=== PATIENT | male | born 1960 | race Caucasian/White ===

== ENCOUNTER 2020-04-03 17:38 | Inpatient (IN) | payer OTHER ==
[~2020-04-03] VITALS: Ht 185.4 cm; Wt 78.5 kg
[2020-04-03] MEDS ORDERED: VANCOMYCIN 1 GM in IV D5W 250 ML IV ONE (18:30)
--- NOTE | 2020-04-03 18:40 | NUR ---
Line started on L ac G18, blood drawn from line and sent to lab
[2020-04-03 18:46] LABS: BASOPHILS % (AUTO) 0.2 % (0.0-2.0); HEMATOCRIT 45 % (39-51); LYMPHOCYTES # (AUTO) 0.4 /CMM (0.8-4.8); LYMPHOCYTES % (AUTO) 2.4 % (20.0-44.0); MEAN CORPUSCULAR HGB CONC 34 g/dl (31.0-36.0); MEAN CORPUSCULAR VOLUME 86 fL (80-96); MONOCYTES # (AUTO) 1.2 /CMM (0.1-1.30); MONOCYTES % (AUTO) 6.9 % (2.0-12.0); NEUTROPHILS # (AUTO) 16.1 /CMM (1.8-8.9); NEUTROPHILS % (AUTO) 90.5 % (43.0-81.0); PLATELET COUNT (AUTO) 220 /CMM (150-450); RED BLOOD CELL COUNT(AUTO) 5.23 MIL/uL (4.5-6.0); WHITE BLOOD COUNT (AUTO) 17.8 K/uL (4.3-11.0)
[2020-04-03] MEDS ORDERED: IOHEXOL-300 100 ML VIAL IV ONE (18:51)
[2020-04-03] MEDS ORDERED: IV NS 0.9% 0 ML IV ONE (18:51)
[2020-04-03] MEDS ORDERED: VANCOMYCIN 1 GM VIAL ONE (18:53)
[2020-04-03 18:54] LABS: CALCIUM, SERUM 8.2 mg/dL (8.5-10.1); CREATININE 1.6 mg/dL (0.6-1.3)
[2020-04-03 19:00] LABS: ALBUMIN 2.5 g/dL (3.4-5.0); BILIRUBIN,DIRECT 0.3 mg/dL (0.0-0.2); BILIRUBIN,TOTAL 0.7 mg/dL (0.2-1.0); TOTAL PROTEIN, SERUM 7.1 g/dL (6.4-8.2)
[2020-04-03] MEDS ORDERED: IV NS 0.9% 1,000 ML BAG IV ONE (19:00)
[2020-04-03] MEDS ORDERED: PIPERACILLIN /TAZOBACTAM 3.375 G in IV D5W 50 ML IV ONE (19:30)
[2020-04-03] MEDS ORDERED: ACETAMINOPHEN 325 MG TABLET PO ONE (19:30)
[2020-04-03] MEDS ORDERED: PIPERACILLIN /TAZOBACTAM 3.375 G VIAL IV ONE (19:46)
[2020-04-03] MEDS ORDERED: ACETAMINOPHEN ES 500 MG TABLET ONE (19:47)
--- NOTE | 2020-04-03 20:07 | NUR ---
REC'D NEG COVID RESULTS
--- NOTE | 2020-04-03 20:44 | NUR ---
KOREY STILL SPEAKING WITH YG BOLES NP REGARDING ADMISSION
--- NOTE | 2020-04-03 21:22 | NUR ---
PT PULLED OUT HIS IV LINE BY MISTAKE. A NEW IV LINE STARTED ON LFA W/ GOOD BLOOD RETURN . WILL CONT TO MONITOR,
[2020-04-04] MEDS ORDERED: MAGNESIUM HYDROXIDE 30 ML UDC PO PRN (00:30)
[2020-04-04] MEDS ORDERED: MAG HYDROX/AL HYDROX/SIMETH 30 ML UDC PO PRN (00:30)
[2020-04-04] MEDS ORDERED: Z GUARD REMEDY 2 OZ OINT TP PRN (00:30)
[2020-04-04] MEDS ORDERED: ZOLPIDEM TARTRATE 5 MG TABLET PO PRN (00:30)
[2020-04-04] MEDS ORDERED: ONDANSETRON HCL/PF 4 MG/2 ML VIAL IVP PRN (00:30)
[2020-04-04] MEDS ORDERED: HYDROCODONE/APAP 5/325MG TABLET PO PRN (00:30)
[2020-04-04] MEDS ORDERED: ACETAMINOPHEN 325 MG TABLET PO PRN (00:30)
--- NOTE | 2020-04-04 00:58 | NUR ---
PT NOTED WITH LOW O2 SAT OF 88% ON R/A . PT WAS PLACED ON O2 AT 5 LPM VIA NC AND YG BOLES FLYING II INSTRUCTOR MADE AWARE WITH A NEW ORDER FOR CXR. WILL CONT TO MONITOR ,
[2020-04-04] MEDS ORDERED: DOSE PER PHARMACY MICAFUNGIN 1 EA XX PRN (01:00)
[2020-04-04] MEDS ORDERED: MICAFUNGIN SODIUM 100 MG in IV NS 0.9% 100 ML IV ONE (01:00)
[2020-04-04] MEDS: IV NS 0.9% 1,000 ML IV PRN ×2 (01:11→20:09)
[2020-04-04] MEDS ORDERED: HEPARIN SODIUM, PORCINE 5000 UNITS/1 ML VIAL ONE ×3 (01:15→21:22)
[2020-04-04] MEDS ORDERED: PIPERACILLIN /TAZOBACTAM 3.375 G VIAL IV ONE ×3 (01:15→12:09)
[2020-04-04] MEDS: HEPARIN SODIUM, PORCINE 5000 UNITS/1 ML VIAL SQ SCH ×3 (01:25→21:56)
[2020-04-04] MEDS: ZOSYN IVPB 3.375 G in IV D5W 50ml IV SCH ×4 (01:25→17:58)
[2020-04-04] MEDS ORDERED: MICAFUNGIN SODIUM 100 MG VIAL IV ONE (01:31)
[2020-04-04] MEDS ORDERED: TOBRAMYCIN OPHTH 5ML 5 ML BOTTLE ONE (01:33)
[2020-04-04] MEDS: TOBRAMYCIN OPHTH 5ML 5 ML BOTTLE EACHEYE SCH ×6 (01:51→21:25)
--- NOTE | 2020-04-04 03:39 | NUR ---
Patient is resting comfortably in bed with eyes closed. Easily aroused. VSS. on ongoing IVF hydration. opal well. will cont to monitor,
--- NOTE | 2020-04-04 07:36 | NUR ---
PATIENT IN BED ASLEEP, EASILY AROUSABLE BY VOICE. HOOKED TO MONITOR. VSS. WILL CONTINUE TO MONITOR ACCORDINGLY
--- NOTE | 2020-04-04 08:53 | NUR ---
JOSÉ MANUEL LUBIN FROM WOUND CARE RECOMMENDED WOUND CULTURE WITH GS. CARRIED OUT
--- NOTE | 2020-04-04 09:00 | NUR ---
WOUND CARE CONSULT: PT SEEN FOR SEVERE REDNESS, EDEMA AND SOME YELLOWISH DRAINAGE AROUND SIDES OF NOSE, PRESENT ON ADMISSION. NO OPEN WOUND NOTED. RN TO DISCUSS WITH MD TODAY. CULTURE RECOMMENDED AND DEFER TO PMD FOR POSSIBLE I.D. CONSULT. WILL SEE PRN.
--- NOTE | 2020-04-04 09:48 | NUR ---
WOUND CULTURE DONE AND SENT TO LAB
[2020-04-04] MEDS: VANCOMYCIN HCL 0.75 GM in IV D5W 250 ML IV SCH ×2 (11:35→23:18)
--- NOTE | 2020-04-04 11:56 | NUR ---
LUNCH TRAY PROVIDED, TOLERATING PO WELL.
[2020-04-04] MEDS: FLUCONAZOLE IN NS,PREMIX 400 MG in PREMIX 1 EA IV SCH ×2 (13:00)
[2020-04-04] MEDS ORDERED: diphenhydrAMINE HCL 50 MG CAPSULE PO PRN (16:00)
[2020-04-04] MEDS ORDERED: methylPREDNISolone SOD SUCC 40 MG/ML VIAL ONE ×2 (16:08→23:14)
[2020-04-04] MEDS ORDERED: FAMOTIDINE/PF INJ 20 MG/2 ML VIAL IV ONE (16:09)
[2020-04-04] MEDS: FAMOTIDINE/PF INJ 20 MG/2 ML VIAL IV SCH (16:14)
[2020-04-04] MEDS: methylPREDNISolone SOD SUCC 40 MG/ML VIAL IV SCH ×2 (16:14→23:18)
--- NOTE | 2020-04-04 17:51 | NUR ---
PATIENT SERVED LUNCH. TOLERATING PO WELL . ATE 90% OF FOOD. Addendum: 04/04/20 at 1850 by ANDREA PATIENT SERVED DINNER. TOLERATING PO WELL . ATE 90% OF FOOD.
[2020-04-04] MEDS ORDERED: HYDROCODONE/APAP 5/325MG TABLET ONE (18:12)
[2020-04-04] MEDS: HYDROCODONE/APAP 5/325MG TABLET PO PRN (18:14)
--- NOTE | 2020-04-04 18:44 | NUR ---
1300 CC TOTAL URINE COLLECTED FOR THE ENTIRE SHIFT
--- NOTE | 2020-04-04 19:21 | NUR ---
REPORT GIVEN TO WILLIAM FRANCOIS FOR KAYLA
--- NOTE | 2020-04-04 19:27 | NUR ---
REC'D PT IN BED , AWAKE AND ALERT. BREATHING EVENLY ON R/A. NO SOB. NAD. NO C/.O PAIN OR DISCOMFORT AT THIS TIME. BED LOW LOCKED POSITION. SR X 2. CALL LIGHT WITHIN REACH. WILL CONT TO MONITOR.
[2020-04-05] MEDS: ZOSYN IVPB 3.375 G in IV D5W 50ml IV SCH ×4 (00:59→17:06)
[2020-04-05] MEDS: TOBRAMYCIN OPHTH 5ML 5 ML BOTTLE EACHEYE SCH ×6 (01:00→21:12)
[2020-04-05 06:07] LABS: BASOPHILS # (AUTO) 0.1 /CMM (0.0-0.2); BASOPHILS % (AUTO) 0.6 % (0.0-2.0); HEMATOCRIT 37 % (39-51); HEMOGLOBIN 12.5 g/dL (13.5-17.5); LYMPHOCYTES # (AUTO) 0.5 /CMM (0.8-4.8); MEAN CORPUSCULAR HGB CONC 34 g/dl (31.0-36.0); MEAN CORPUSCULAR VOLUME 87 fL (80-96); MONOCYTES # (AUTO) 0.2 /CMM (0.1-1.30); MONOCYTES % (AUTO) 2.6 % (2.0-12.0); NEUTROPHILS # (AUTO) 8.7 /CMM (1.8-8.9); NEUTROPHILS % (AUTO) 91.8 % (43.0-81.0); PLATELET COUNT (AUTO) 235 /CMM (150-450); WHITE BLOOD COUNT (AUTO) 9.5 K/uL (4.3-11.0)
[2020-04-05 06:33] LABS: BILIRUBIN,TOTAL 0.2 mg/dL (0.2-1.0); CALCIUM, SERUM 8.1 mg/dL (8.5-10.1); CREATININE 1.2 mg/dL (0.6-1.3); MAGNESIUM 2.2 mg/dL (1.8-2.4); PHOSPHORUS 3.4 mg/dL (2.5-4.9); POTASSIUM 4.4 mmol/L (3.5-5.1); TOTAL PROTEIN, SERUM 6.2 g/dL (6.4-8.2)
[2020-04-05] MEDS: IV NS 0.9% 1,000 ML IV PRN ×2 (06:59→08:09)
[2020-04-05] MEDS ORDERED: FAMOTIDINE/PF INJ 20 MG/2 ML VIAL IV ONE ×2 (08:01→21:03)
[2020-04-05] MEDS ORDERED: HEPARIN SODIUM, PORCINE 5000 UNITS/1 ML VIAL ONE ×2 (08:02→21:03)
[2020-04-05] MEDS ORDERED: methylPREDNISolone SOD SUCC 40 MG/ML VIAL ONE ×3 (08:02→23:59)
[2020-04-05] MEDS: FAMOTIDINE/PF INJ 20 MG/2 ML VIAL IV SCH ×2 (08:09→21:05)
--- NOTE | 2020-04-05 08:11 | NUR ---
PT GIVEN MEDS PER MD ORDER
[2020-04-05] MEDS: methylPREDNISolone SOD SUCC 40 MG/ML VIAL IV SCH ×2 (08:13→16:08)
[2020-04-05] MEDS: HEPARIN SODIUM, PORCINE 5000 UNITS/1 ML VIAL SQ SCH ×2 (08:14→21:12)
[2020-04-05] MEDS ORDERED: HYDROCODONE/APAP 5/325MG TABLET ONE (08:40)
[2020-04-05] MEDS: HYDROCODONE/APAP 5/325MG TABLET PO PRN (08:42)
--- NOTE | 2020-04-05 08:46 | NUR ---
PATIENT A/OX4, BREATHING EVEN AND UNLABORED, ATE BREAKFAST AND TOLERATED WELL. PATIENT COMPLAINED OF FACIAL PAIN, NORCO GIVEN. NO DISTRESS NOTED.
[2020-04-05] MEDS: VANCOMYCIN HCL 0.75 GM in IV D5W 250 ML IV SCH (11:04)
[2020-04-05] MEDS: FLUCONAZOLE IN NS,PREMIX 400 MG in PREMIX 1 EA IV SCH ×2 (12:49)
--- NOTE | 2020-04-05 14:16 | NUR ---
PATIENT RESTING, NO DISTRESS NOTED.
--- NOTE | 2020-04-05 14:48 | NUR ---
MARJORIE COMMISSARY CLERK AT BEDSIDE FOR EVAL. NO DISTRESS NOTED.
[2020-04-05] MEDS ORDERED: HYDROCODONE/APAP 10/325MG TABLET PO PRN (15:00)
--- NOTE | 2020-04-05 16:57 | NUR ---
ZOSYN GIVEN PER MD ORDER
--- NOTE | 2020-04-05 17:50 | NUR ---
pt amb br washed up bed cleaned eatting dinner
[2020-04-05] MEDS: VANCOMYCIN 1 GM in IV D5W 250ml IV SCH (21:12)
[2020-04-05] MEDS ORDERED: HYDROCODONE/APAP 10/325MG TABLET ONE (23:29)
[2020-04-06] MEDS: ZOSYN IVPB 3.375 G in IV D5W 50ml IV SCH ×3 (00:10→12:22)
--- NOTE | 2020-04-06 00:34 | NUR ---
PT RESTING COMFORTABLY. VSS.
[2020-04-06] MEDS: TOBRAMYCIN OPHTH 5ML 5 ML BOTTLE EACHEYE SCH ×4 (01:03→13:29)
[2020-04-06] MEDS ORDERED: HYDROCODONE/APAP 5/325MG TABLET ONE (03:04)
--- NOTE | 2020-04-06 04:37 | NUR ---
PT REQUESTED WATER. WATER AND SNACKS PROVIDED TO PT.
[2020-04-06 05:27] LABS: CALCIUM, SERUM 8.6 mg/dL (8.5-10.1); POTASSIUM 4.4 mmol/L (3.5-5.1)
--- NOTE | 2020-04-06 07:12 | NUR ---
SPOKE TO THE MOTHER REGARDING KAYLA, CONSENT FROM [facility] WAS OBTAINED BEFORE.
--- NOTE | 2020-04-06 07:56 | NUR ---
REPORT GIVEN TO NAPOLEON FRANCOIS FOR KAYLA
[2020-04-06 08:06] LABS: PTH, INTACT 39 pg/mL (15-65)
--- NOTE | 2020-04-06 08:32 | NUR ---
PATIENT IN BED, EATING BREAKFAST. TOLERATING PO WELL. WILL CONTINUE TO MONITOR
[2020-04-06] MEDS ORDERED: methylPREDNISolone SOD SUCC 40 MG/ML VIAL ONE (08:58)
[2020-04-06] MEDS: NICOTINE PATCH (21MG) 21 MG PATCH.TD24 TD SCH ×2 (09:00→09:13)
[2020-04-06] MEDS: methylPREDNISolone SOD SUCC 40 MG/ML VIAL IV SCH ×2 (09:00)
[2020-04-06] MEDS ORDERED: FAMOTIDINE/PF INJ 20 MG/2 ML VIAL IV ONE (09:36)
[2020-04-06] MEDS ORDERED: HEPARIN SODIUM, PORCINE 5000 UNITS/1 ML VIAL ONE (09:36)
[2020-04-06] MEDS: VANCOMYCIN 1 GM in IV D5W 250ml IV SCH (09:48)
[2020-04-06] MEDS: HEPARIN SODIUM, PORCINE 5000 UNITS/1 ML VIAL SQ SCH (09:48)
[2020-04-06] MEDS: FAMOTIDINE/PF INJ 20 MG/2 ML VIAL IV SCH (09:49)
--- NOTE | 2020-04-06 11:42 | NUR ---
PATIENT IN BED AWAKE. HOOKED TO MONITOR, VSS.
[2020-04-06] MEDS: FLUCONAZOLE IN NS,PREMIX 400 MG in PREMIX 1 EA IV SCH ×4 (12:22→13:00)
--- NOTE | 2020-04-06 13:59 | NUR ---
SEEN BY MANAGER INSURANCE RICKY, PATIENT OK TO BE DISCHARGED. PRESCRIPTIONS FOR NORCO 10-325MG Q12 PRN MEDROL DOSE PACK 4MG AND CLINDAMYCIN 300MG PO Q6 X 7DAYS GIVEN.
--- NOTE | 2020-04-06 15:42 | NUR ---
IV removed. Catheter intact and site benign. Pressure and 4x4 applied to site. No bleeding noted. Patient discharged to home in stable condition. Written and verbal after care instructions given. Patient verbalizes understanding of instruction. Provided w prescription. facial area with scab, but the rest of the body has intact skin. Patient ambulatory and AAO x 4. All belongings given back to patient.
--- NOTE | 2020-04-06 15:53 | NUR ---
ADVANCE STATUS (DISCHARGE FINAL) - UNABLE TO DEPART IN [facility]
[2020-04-06 16:49] VITALS: BP 126/62
[2020-04-07 08:12] LABS: *SPE A/G RATIO 0.7 (0.7-1.7); *SPE ALBUMIN 2.2 g/dL (2.9-4.4); *SPE ALPHA-1-GLOBULIN 0.4 g/dL (0.0-0.4); *SPE ALPHA-2-GLOBULIN 0.9 g/dL (0.4-1.0); *SPE BETA GLOBULIN 0.9 g/dL (0.7-1.3); *SPE GLOBULIN, TOTAL 3.3 g/dL (2.2-3.9); *SPE M-SPIKE Not Observed g/dL (Not Observed); *SPEGAMMA GLOBULIN 1.1 g/dL (0.4-1.8)
== END 2020-04-06 15:47 | disposition home or self-care (01) | DRG 383 ==
LOC: ER 17:43 → TRANSITION 23:31
PROVIDERS: ADMIT Nurse Practitioner Acute Care; ATTEND Nurse Practitioner Acute Care
DX: L03.211 Cellulitis of face (principal); E87.1 Hypo-osmolality and hyponatremia; N17.0 Acute kidney failure with tubular necrosis; E44.0 Moderate protein-calorie malnutrition; E86.1 Hypovolemia; E87.2 Acidosis; F17.200 Nicotine dependence, unspecified, uncomplicated; Z20.828 Contact with and (suspected) exposure to other viral communicable diseases; D72.829 Elevated white blood cell count, unspecified; E88.09 Other disorders of plasma-protein metabolism, not elsewhere classified; Z68.22 Body mass index [BMI] 22.0-22.9, adult; R73.9 Hyperglycemia, unspecified
CPT/HCPCS: 36415; 70486-TC; 71045-TC; 80048-TC; 80053-TC; 80061-TC; 80076-TC; 80202-TC; 82550-TC; 83605-TC; 83735-TC; 83970; 84100-TC; 84155; 84165; 85025-TC; 87040-TC; 87070-TC; 87186-TC; A4216; C9803; G0378; J1450; J1644; J2248; J2405; J2543; J2920; J3370; J3490; J7030; J7050; J7060; Q9967